=== PATIENT | male | born 1980 | race Caucasian/White ===

== ENCOUNTER 2022-12-14 16:06 | Inpatient (IN) | payer MEDICAID, OTHER, SELFPAY ==
[2022-12-14 16:16] VITALS: BP 111/74; PULSE 72; RESP 16; TEMP 36.7; O2SAT 97; BMI 24.8
--- NOTE | 2022-12-14 16:18 | ED_ITS ---
HPI - General Adult General Chief complaint: Psychiatric Symptoms Stated complaint: crisis eval ,homicidal,suicidal Time Seen by Provider: 12/14/22 16:26 Source: patient Mode of arrival: ambulatory Limitations: no limitations History of Present Illness HPI narrative: Patient comes in the emergency room complaining of feeling suicidal, homicidal with no specific plan without any specific person that he wants to hurt. Patient states that he has tried hurting himself by lacerating superficially his left arm. Patient states that the beginning of the month, patient lost custody of his children and that is his trigger. Related Data Home Medications Medication Instructions Recorded Confirmed ibuprofen 200 mg tablet 200 mg PO Q6H PRN Migraine Headache 12/15/22 12/15/22 Previous Rx's Medication Instructions Recorded aripiprazole 10 mg tablet 10 mg PO DAILY 30 days #30 tabs 12/18/22 bupropion HCl 150 mg 24 hr tablet, 150 mg PO DAILY 30 days #30 tabs 12/18/22 extended release melatonin 10 mg tablet 10 mg PO BEDTIME PRN Sleep 30 days 12/18/22 #30 tabs Allergies Allergy/AdvReac Type Severity Reaction Status Date / Time acetaminophen [From Tylenol] Allergy Hives Verified 12/14/22 16:20 Review of Systems Review of Systems: Constitutional : No Weight loss, No Fever, No Chills, No Night Sweats, No Fatigue, No Malaise ENT/Mouth : No Hearing loss, No Ear Pain, No Nasal Congestion, No Sinus Pain, No Hoarseness, No sore throat, No Rhinorrhea, No Swallowing Difficulty Eyes: No Eye Pain, No Swelling, No Redness, No Foreign Body, No Discharge, No Vision Changes Cardiovascular : No Chest Pain, No SOB, No Dyspnea on Exertion, No Orthopnea, No Edema, No Palpitations Respiratory : No Cough, No Sputum, No Wheezing, No Smoke Exposure, No Dyspnea Gastrointestinal : No Nausea, No Vomiting, No Diarrhea, No Constipation, No abdominal Pain, No Hematochezia, No Melena Genitourinary : no irregular bleeding, No Dysuria, No Urinary Frequency, No Hematuria, No Urinary Incontinence, No Urgency, No Flank Pain, No Urinary Flow Changes, No Hesitancy Musculoskeletal : No joint pain, No Myalgias, No Joint Swelling Skin : No Skin Lesions, No rash Neuro : No Weakness, No Numbness, No Paresthesias, No Loss of Consciousness, No Dizziness, No Headache Psych : Complaining of anxiety, depression, vague suicidal ideation, lost custody of his children 11/18/2022 Heme/Lymph: No Bruising, No Bleeding,No Lymphadenopathy Endocrine : No Polyuria, No Polydipsia, No Temperature Intolerance [facility] Past Medical History Medical History (Updated 12/16/22 @ 16:19 by Jd Simpson MD) Alcohol use disorder Anxiety and depression Cocaine use disorder PTSD (post-traumatic stress disorder) Social History Social History Household Members: Other Housing: Homeless Do you presently have visiting nurse or other home services: No Alcohol intake: current Alcohol intake frequency: 3 or more drinks per day Alcohol type: beer and hard liquor Patient Tobacco Use Status: Current everyday Tobacco user Tobacco use type: Cigarette Cigarette Packs Per Day: 0.5 Cigarettes Per Day: 10.0 Years Smoked: 29 e-Cigarette/Vaping Use: Never Used Second Hand Smoke Exposure: Yes Substance Use Type: Crack/Cocaine and Marijuana service: No Sexual orientation: Straight/Heterosexual Physical Exam ED Vital Signs: Vital Signs - 24 hr 12/14/22 16:16 12/15/22 02:10 12/15/22 08:47 Temperature 98.1 F 97.1 F 97.8 F Pulse Rate 72 74 70 Respiratory Rate 16 14 20 Blood Pressure 111/74 117/78 109/80 Pulse Oximetry 97 99 99 Oxygen Delivery Method Room Air Room Air Room Air BMI result Body Mass Index 24.8 Course Course Course Narrative: RME: 42 yold male presents to the ED for suicidal/homicidal thougts and depression. patient he is thinking of his lost children. patient seen at [facility]. -all of patient's labs pending -care team consult pending -physician observation started at 16:55 Reevaluation(s) Reevaluation #1: Physician observation continued. Patient started back on his medication as he was non compliant. Evaluated by crisis and it was determined that the patient should be reevaluated in the morning for potential psych admission. Patient resting comfortably, NAD, lungs clear, CV RRR, Abd nontender, Neuro intact Reevaluation #2: Physician observation continued. VS stable, no acute events overnight, inpatient bed search. voluntary Reevaluation #3: Physician observation ended at 1140am admitted to . Medications Administered Discontinued Medications Generic Name Dose Route Start Last Admin Trade Name Freq PRN Reason Stop Dose Admin Aripiprazole 10 mg 12/15/22 10:15 12/18/22 08:47 Aripiprazole 10 Mg Tablet PO 10 mg DAILY PETTY Administration Bupropion HCl 150 mg 12/17/22 13:07 12/17/22 13:22 Bupropion Hcl Xl 150 Mg Tab.Er.24h PO 12/17/22 13:08 150 mg ONCE ONE Administration Bupropion HCl 150 mg 12/18/22 09:00 12/18/22 08:46 Bupropion Hcl Xl 150 Mg Tab.Er.24h PO 150 mg DAILY PETTY Administration Gabapentin 300 mg 12/15/22 15:02 12/18/22 08:47 Gabapentin 300 Mg Capsule PO 300 mg TID PETTY Administration Ibuprofen 600 mg 12/15/22 10:42 12/15/22 10:50 Ibuprofen 600 Mg Tablet PO 12/15/22 10:43 600 mg ONCE ONE Administration Ibuprofen 200 mg 12/15/22 15:02 12/16/22 17:53 Ibuprofen 200 Mg Tablet PO 200 mg Q6H PRN Administration Migraine Headache Lorazepam 1 mg 12/15/22 15:02 12/16/22 12:27 Lorazepam 1 Mg Tablet PO 1 mg Q2H PRN Administration CIWA 6-10 Lorazepam 2 mg 12/15/22 15:02 12/18/22 08:47 Lorazepam 1 Mg Tablet PO 2 mg Q2H PRN Administration CIWA 11 and above Lorazepam 2 mg 12/15/22 15:02 12/15/22 16:24 Lorazepam 1 Mg Tablet PO 12/15/22 15:03 2 mg ONCE ONE Administration Lorazepam 2 mg 12/17/22 21:25 12/17/22 21:33 Lorazepam 1 Mg Tablet PO 12/17/22 21:26 2 mg ONCE ONE Administration Melatonin 9 mg 12/15/22 15:33 12/17/22 19:57 Melatonin 3 Mg Tablet PO 9 mg BEDTIME PRN Administration Sleep Thiamine HCl 100 mg 12/15/22 15:02 12/18/22 08:46 Thiamine Hcl 100 Mg Tablet PO 100 mg DAILY PETTY Administration Medical Decision Making Medical Decision Making MDM Narrative: - the care team evaluated the patient, inpatient bed search, patient is not on a Section 12 comfort patient is voluntarily checking himself in -when the position of labs, urine tested positive for fentanyl, benzodiazepines and cocaine, no acute management needed for patient's results from hematology and chemistry Differential Diagnosis Differential Diagnoses: The differential diagnosis associated with the presentation includes (Anxiety, depression, substance abuse) Admission/Observation Consideration of admission/observation: Escalation of care including admission/observation considered (Patient is an inpatient bed search, will be under observation in the ED until a bed becomes available.) Consult Healthcare Provider Management of the patient was discussed with: Behavioral Health Provider Lab Data MDM Lab Attestation statement: I reviewed the patient's lab results. 12/14/22 17:12 12/14/22 17:12 Labs: Lab Results 12/14/22 12/14/22 12/14/22 Range/Units 16:47 16:47 17:12 WBC 5.6 (4.8-10.8) X10*3/uL RBC 4.21 L (4.60-5.80) X10*6/uL Hgb 13.3 L (14.0-18.0) g/dl Hct 38.0 L (42.0-52.0) % MCV 90.3 (80.0-98.0) fL MCH 31.6 (27.0-33.0) pg MCHC 35.0 (31.0-36.0) g/dl RDW 12.8 (11.0-16.0) % Plt Count 265 (160-400) X10*3/uL MPV 9.7 (9.4-12.4) fL Immature Gran % (Auto) 0.2 (0.0-0.4) % Neut % (Auto) 40.1 L (45-73) % Lymph % (Auto) 42.3 H (20-40) % [place] % (Auto) 15.5 H (2-11) % Eos % (Auto) 1.4 (0-4) % Baso % (Auto) 0.5 (0-2) % Lymph # (Auto) 2.4 (1.2-4.9) X10*3/uL Finney # (Auto) 0.9 (0.1-1.2) X10*3/uL Eos # (Auto) 0.1 (0.0-0.4) X10*3/uL Baso # (Auto) 0.0 (0.0-0.2) X10*3/uL Abs Immat Gran (auto) 0.01 (0.00-0.03) X10*3/uL Absolute Neuts (auto) 2.2 (2.0-8.3) x10*3/uL Absolute Nucleated RBC 0.000 (0.0-0.012) X10*3/uL Nucleated RBC % (auto) 0.0 (0.0-0.2) /100WBC Sodium (135-145) mmol/L Potassium (3.3-5.1) mmol/L Chloride (96-108) mmol/L Carbon Dioxide (22-29) mmol/L Anion Gap (12-20) BUN (9-16) mg/dL Creatinine (0.5-1.4) mg/dL Estim Creat Clear Calc Estimated GFR Random Glucose (60-115) mg/dL Calcium (8.4-10.2) mg/dL Total Bilirubin (0.0-1.0) mg/dL AST (5-37) U/L ALT (0-40) U/L Alkaline Phosphatase (39-117) U/L Total Protein (6.5-8.0) g/dL Albumin (3.5-5.0) g/dL Urine Color Yellow Urine Appearance Turbid Urine pH 5.5 (5.0-9.0) Ur Specific [place] 1.025 (1.005-1.025) Urine Protein Negative (Neg-Trace) mg/dL Urine Glucose (UA) Negative (Negative) mg/dL Urine Ketones Trace (Negative) mg/dL Urine Blood Negative (Negative) Urine Nitrite Negative (Negative) Ur Leukocyte Esterase Negative (Negative) Urine RBC 0-2 (0-2) /HPF Urine WBC 0-5 (0-5) /HPF Ur Squamous Epith Cells 0-2 (0-2) /HPF Urine Bacteria None Seen (None Seen) Hyaline Casts 0-2 (0-2) /LPF Urine Opiates Screen Not Detected (Not Detect) Urine Fentanyl Screen POSITIVE H (Not Detect) Ur Barbiturates Screen Not Detected (Not Detect) Ur Phencyclidine Scrn Not Detected (Not Detect) Ur Amphetamines Screen Not Detected (Not Detect) U Benzodiazepines Scrn POSITIVE H (Not Detect) Urine Cocaine Screen POSITIVE H (Not Detect) U Marijuana (THC) Screen Not Detected (Not Detect) Ethyl Alcohol mg/dL COVID-19 ([facility]) (Negative) COVID-19 Clin Com 12/14/22 12/14/22 Range/Units 17:12 17:12 WBC (4.8-10.8) X10*3/uL RBC (4.60-5.80) X10*6/uL Hgb (14.0-18.0) g/dl Hct (42.0-52.0) % MCV (80.0-98.0) fL MCH (27.0-33.0) pg MCHC (31.0-36.0) g/dl RDW (11.0-16.0) % Plt Count (160-400) X10*3/uL MPV (9.4-12.4) fL Immature Gran % (Auto) (0.0-0.4) % Neut % (Auto) (45-73) % Lymph % (Auto) (20-40) % Finney % (Auto) (2-11) % Eos % (Auto) (0-4) % Baso % (Auto) (0-2) % Lymph # (Auto) (1.2-4.9) X10*3/uL [place] # (Auto) (0.1-1.2) X10*3/uL Eos # (Auto) (0.0-0.4) X10*3/uL Baso # (Auto) (0.0-0.2) X10*3/uL Abs Immat Gran (auto) (0.00-0.03) X10*3/uL Absolute Neuts (auto) (2.0-8.3) x10*3/uL Absolute Nucleated RBC (0.0-0.012) X10*3/uL Nucleated RBC % (auto) (0.0-0.2) /100WBC Sodium 137 (135-145) mmol/L Potassium 3.8 (3.3-5.1) mmol/L Chloride 107 (96-108) mmol/L Carbon Dioxide 22 (22-29) mmol/L Anion Gap 12 (12-20) BUN 30 H (9-16) mg/dL Creatinine 0.86 (0.5-1.4) mg/dL Estim Creat Clear Calc 113.0 Estimated GFR > 60 Random Glucose 112 (60-115) mg/dL Calcium 9.9 (8.4-10.2) mg/dL Total Bilirubin 0.4 (0.0-1.0) mg/dL AST 57 H (5-37) U/L ALT 39 (0-40) U/L Alkaline Phosphatase 91 (39-117) U/L Total Protein 6.3 L (6.5-8.0) g/dL Albumin 3.7 (3.5-5.0) g/dL Urine Color Urine Appearance Urine pH (5.0-9.0) Ur Specific [place] (1.005-1.025) Urine Protein (Neg-Trace) mg/dL Urine Glucose (UA) (Negative) mg/dL Urine Ketones (Negative) mg/dL Urine Blood (Negative) Urine Nitrite (Negative) Ur Leukocyte Esterase (Negative) Urine RBC (0-2) /HPF Urine WBC (0-5) /HPF Ur Squamous Epith Cells (0-2) /HPF Urine Bacteria (None Seen) Hyaline Casts (0-2) /LPF Urine Opiates Screen (Not Detect) Urine Fentanyl Screen (Not Detect) Ur Barbiturates Screen (Not Detect) Ur Phencyclidine Scrn (Not Detect) Ur Amphetamines Screen (Not Detect) U Benzodiazepines Scrn (Not Detect) Urine Cocaine Screen (Not Detect) U Marijuana (THC) Screen (Not Detect) Ethyl Alcohol < 10 mg/dL COVID-19 ([facility]) Negative (Negative) COVID-19 Clin Com See Note Critical Care Time Critical Care Time Critical Care Time: Yes Total Critical Care Time: 60 Attestation: I have personally provided critical care time. Time includes review of lab data, radiology results, discussion with consultants, and monitoring for potential decompensation. Intervention performed as documented. Discharge Plan Discharge Clinical Impression: Depression, Polysubstance abuse Patient Disposition: Admitted As Inpatient Interventions: Admission Worksheet (ED) Last Done: 12/15/22 14:51 Discharge Date/Time: 12/15/22 14:40
--- NOTE | 2022-12-14 16:37 | PC.NURSE ---
Patient reports SI/Hi d/t losing custody of his children. Reports tried to commit SI on Nov 18 by cutting wrist. Patient reports needing 3 ezequiel to wrist. Requesting to be admitted somewhere to get help however states [facility] to send him to [facility] and he said no because he has an upcoming court date. Reports snorting cocaine this am, and drinks 4 tall boys and 6 nips per day. Report using marijuana.
[2022-12-14 16:43] VITALS: PULSE 78
--- NOTE | 2022-12-14 16:48 | PC.NURSE ---
Provider notified of CIWA score
[2022-12-14 17:20] LABS: MANUAL DIFF FLAG NO
[2022-12-14 17:24] LABS: Amphetamine Screen Urine Not Detected (Not Detect); Barbiturates, Urine Not Detected (Not Detect); Benzodiazepines Screen Urine POSITIVE (Not Detect); Cannabinoid Screen Urine Not Detected (Not Detect); Cocaine Screen Urine POSITIVE (Not Detect); Fentanyl, urine POSITIVE (Not Detect); Opiate Screen Urine Not Detected (Not Detect); Phencyclidine Screen Urine Not Detected (Not Detect)
[2022-12-14 17:26] LABS: Basophils Percent Auto 0.5 % (0-2); Eosinophils Absolute Auto 0.1 X10*3/uL (0.0-0.4); Eosinophils Percent Auto 1.4 % (0-4); Hemoglobin 13.3 g/dl (14.0-18.0); Imm Gran Abs Auto 0.01 X10*3/uL (0.00-0.03); Imm Gran Pct Auto 0.2 % (0.0-0.4); Lymphocytes Absolute Auto 2.4 X10*3/uL (1.2-4.9); Lymphocytes Percent Auto 42.3 % (20-40); Mean Corpuscular Hemoglobin 31.6 pg (27.0-33.0); Mean Corpuscular Volume 90.3 fL (80.0-98.0); Mean Platelet Volume 9.7 fL (9.4-12.4); Monocytes Absolute Auto 0.9 X10*3/uL (0.1-1.2); Monocytes Percent Auto 15.5 % (2-11); Neutrophils Absolute Auto 2.2 x10*3/uL (2.0-8.3); Neutrophils Percent Auto 40.1 % (45-73); Platelet Count 265 X10*3/uL (160-400); Red Blood Count 4.21 X10*6/uL (4.60-5.80); Red Cell Distribution Width 12.8 % (11.0-16.0); White Blood Count 5.6 X10*3/uL (4.8-10.8)
[2022-12-14 17:36] LABS: COVID-19 Test Negative (Negative); IDNOW Serial# 08D9AD1C
[2022-12-14 17:48] LABS: Alanine Aminotransferase 39 U/L (0-40); Albumin Level 3.7 g/dL (3.5-5.0); Alkaline Phosphatase 91 U/L (39-117); Anion Gap 12 (12-20); Aspartate Amino Transferase 57 U/L (5-37); Bilirubin Total 0.4 mg/dL (0.0-1.0); Blood Urea Nitrogen 30 mg/dL (9-16); Calcium 9.9 mg/dL (8.4-10.2); Carbon Dioxide 22 mmol/L (22-29); Chloride 107 mmol/L (96-108); Estimated Glomerular Filt Rate > 60; Ethanol < 10 mg/dL; Glucose Random 112 mg/dL (60-115); Potassium 3.8 mmol/L (3.3-5.1); Sodium 137 mmol/L (135-145); Total Protein 6.3 g/dL (6.5-8.0)
[2022-12-15 02:10] VITALS: BP 117/78; PULSE 74; RESP 14; TEMP 36.2; O2SAT 99
--- NOTE | 2022-12-15 06:40 | PC.NURSE ---
Patient slept through the night, no distress observed/reported, behavior non concerning, disposition per care team is voluntary inpatient bed search, med rec completed/pending provider's approval, VSS, will continue to monitor.
--- NOTE | 2022-12-15 07:59 | ECG_ITS ---
Test Reason : POSITIVE FOR COCAINE Blood Pressure : / mmHG Vent. Rate : 070 BPM Atrial Rate : 070 BPM P-R Int : 138 ms QRS Dur : 086 ms QT Int : 356 ms P-R-T Axes : 053 045 052 degrees QTc Int : 384 ms Normal sinus rhythm Normal ECG No previous ECGs available Referred By: Suzanna Goodson Electronically Signed By:NOE ZENG
[2022-12-15 08:27] LABS: Appearance Urine Turbid; Color Urine Yellow; Glucose Urine UA Negative (Negative); Leukocyte Esterase Urine Negative (Negative); Nitrite Urine Negative (Negative); PH 5.5 (5.0-9.0); Specific Gravity - Urine 1.025 (1.005-1.025); Urine Blood Negative (Negative); Urine Ketones Trace mg/dL (Negative); Urine Protein Negative (Neg-Trace)
[2022-12-15 08:32] LABS: Bacteria Urine None Seen (None Seen); Hyaline Casts Urine 0-2 /LPF (0-2); RBC Urine 0-2 /HPF (0-2); Squamous Epithelial Cell Urine 0-2 /HPF (0-2); WBC Urine 0-5 /HPF (0-5)
[2022-12-15 08:47] VITALS: BP 109/80; PULSE 70; RESP 20; TEMP 36.6; O2SAT 99
--- NOTE | 2022-12-15 09:47 | PC.NURSE ---
Awake and ambulatory to bathroom. EKG and UA completed per request of floor. Calm and cooperative.
[2022-12-15] MEDS: ARIPiprazole 10 MG TABLET PO (10:10)
[2022-12-15] MEDS: Ibuprofen 600 MG TABLET PO (10:50)
--- NOTE | 2022-12-15 12:17 | PHA.MEDREC ---
Pharmacy Consult ? Medication Reconciliation Pharmacy has completed the medication reconciliation. Spoke to patient. Of Note: patient mentioned hes on ativan he could not recall the dose or frequency but mentioned he takes it for his withdrawals and that is why it was in his pee . Patient has zero claims for ativan and shows zero history of ativan in PDMP. Not sure how patient is obtaining it, left it out for this reason
[2022-12-15 14:51] VITALS: BP 131/83; PULSE 72; RESP 16; TEMP 36.8; O2SAT 99
[2022-12-15 14:52] VITALS: BMI 24.0
[2022-12-15] MEDS: LORazepam 1 MG TABLET 2 MG PO ×2 (16:24→21:36)
[2022-12-15] MEDS: Thiamine HCL 100 MG TABLET PO (16:24)
[2022-12-15] MEDS: Gabapentin 300 MG CAPSULE PO ×2 (16:24→21:31)
--- NOTE | 2022-12-15 18:28 | PC.ADMIT ---
Patient is a 42 year old Malawian speaking male, admitted from the [facility] ED at 1430 as a CV. Patient diagnosis: Unspecified depressive d/o; alcohol use disorder, moderate; cocaine use disorder, moderate. No medical issues noted. Patient apparently drinks a lot of ethanol most days and will be monitored for withdrawals. Patient was also voicing SI/HI in the ED with no plan or specific person. The SI feelings are ongoing and the patient had reported he wanted to be . He also reported fleeting aggressive thoughts, especially when he feels disrespected or wronged by other people. At the beginning of November 2022 patient's parental rights were revoked and the patient said the decision was a big trigger for his SI/HI feelings. Two IPLOC admissions to psychiatric units in the past month as well as being seen twice in the last week in emergency rooms at two other hospitals. He was not deemed in need of IPLOC during those two visits. Patient said that he has been so depressed he did an intentional drug overdose in the last two weeks. At this time the patient indicated that he is not having any SI/HI, AH/VH and denied any physical issues other than withdrawal symptoms He scored a 17 on his 1600 CIWA and was given medication. During the admission process, patient was calm and cooperative, but did report he has trouble sleeping if he has to share a room with anyone. All legals were signed, treatment plan and safety tool completed. Patient ate dinner and showered, he is calm at this time.
[2022-12-15] MEDS: Melatonin 3 MG TABLET 9 MG PO (21:31)
[2022-12-16 08:00] VITALS: BP 117/77; PULSE 68; RESP 18; TEMP 36; O2SAT 99
[2022-12-16] MEDS: Gabapentin 300 MG CAPSULE PO ×3 (08:09→21:36)
[2022-12-16] MEDS: Thiamine HCL 100 MG TABLET PO (08:09)
[2022-12-16] MEDS: ARIPiprazole 10 MG TABLET PO (08:09)
[2022-12-16] MEDS: LORazepam 1 MG TABLET PO ×2 (08:13→12:27)
[2022-12-16 08:25] LABS: Estimated Average Glucose 100 mg/dL; Hemoglobin A1c % 5.1 % (<6.0)
[2022-12-16 08:27] LABS: Cholesterol 187 mg/dL (<200); HDL Cholesterol 60 mg/dL (>40); LDL Cholesterol Calculated 115 mg/dL (<100); Triglycerides 62 mg/dL (<150)
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
[2022-12-16 09:43] LABS: Folate 8.8 ng/mL (> or = 4.0)
[2022-12-16 17:45] VITALS: BP 120/70; PULSE 82; TEMP 36.3
[2022-12-16] MEDS: Ibuprofen 200 MG TABLET PO (17:53)
[2022-12-16] MEDS: LORazepam 1 MG TABLET 2 MG PO (17:53)
[2022-12-16] MEDS: Melatonin 3 MG TABLET 9 MG PO (21:37)
[2022-12-17] MEDS: LORazepam 1 MG TABLET 2 MG PO ×5 (02:09→21:33)
--- NOTE | 2022-12-17 05:17 | PC.NURSE ---
Pt scored 11 on ciwa, 2mg of PRN Ativan given with positive effect.
[2022-12-17] MEDS: Thiamine HCL 100 MG TABLET PO (08:03)
[2022-12-17] MEDS: ARIPiprazole 10 MG TABLET PO (08:03)
[2022-12-17] MEDS: Gabapentin 300 MG CAPSULE PO ×3 (08:03→19:58)
[2022-12-17 08:16] VITALS: BP 128/78; PULSE 91; RESP 18; TEMP 36.3; O2SAT 98
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
[2022-12-17] MEDS: buPROPion HCl XL 150 MG TAB.ER.24H PO (13:22)
[2022-12-17] MEDS: Melatonin 3 MG TABLET 9 MG PO (19:57)
[2022-12-17 20:00] VITALS: BP 110/72; PULSE 88; RESP 18; TEMP 36.1
--- NOTE | 2022-12-17 21:28 | PC.NURSE ---
PT continues with alcohol w/d sx, last CIWA score was 15 @ 20:00. PT was given 2mg of Ativan @ 20:00 with little effect and continues to be moderately tremulous and reports little relief of other w/d sx. Dr. Simpson contacted via [employer], 2mg Ativan ordered NOW one time dose. Effect pending. VS stable.
--- NOTE | 2022-12-17 22:21 | PC.NURSE ---
This technical writer and editor attempted to check on patient post Ativan admin, pt currently in bed sleeping, respirations even and unlabored. Will continue to monitor.
[2022-12-18] MEDS: Thiamine HCL 100 MG TABLET PO (08:46)
[2022-12-18] MEDS: buPROPion HCl XL 150 MG TAB.ER.24H PO (08:46)
[2022-12-18] MEDS: Gabapentin 300 MG CAPSULE PO (08:47)
[2022-12-18] MEDS: LORazepam 1 MG TABLET 2 MG PO (08:47)
[2022-12-18] MEDS: ARIPiprazole 10 MG TABLET PO (08:47)
[2022-12-18 08:49] VITALS: BP 128/74; PULSE 92; RESP 18; TEMP 36.5; O2SAT 98
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
--- NOTE | 2022-12-18 11:39 | PC.NURSE ---
Pt signed 3-day notice up on 12/18. , CARMEN[place]A, UR aware.
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
== END 2022-12-18 12:31 | disposition home or self-care (01) | DRG 753 ==
LOC: HO.ED 12-15 11:37 → HO.PM5 12-15 14:06
PROVIDERS: Emergency Medicine; Physician Assistant; Admitting Provider Psychiatry & Neurology Psychiatry; Emergency Provider Emergency Medicine; PCP Registered Nurse; Visit Provider Psychiatry & Neurology Psychiatry
DX: F31.81 Bipolar II disorder (principal); R45.851 Suicidal ideations; R45.850 Homicidal ideations; F19.10 Other psychoactive substance abuse, uncomplicated; F43.12 Post-traumatic stress disorder, chronic; F10.20 Alcohol dependence, uncomplicated; F17.210 Nicotine dependence, cigarettes, uncomplicated; Z71.6 Tobacco abuse counseling; Z20.822 Contact with and (suspected) exposure to COVID-19; Z79.899 Other long term (current) drug therapy
CPT/HCPCS: 36415; 80053; 80061; 80307; 81001; 82746; 83036; 85025; 87635; 93005; 99285; S9485

== ENCOUNTER → 2022-12-15 13:49 | Outpatient (BNV) | payer OTHER, SELFPAY | PROVIDERS: Admitting Provider Psychiatry & Neurology Psychiatry; Emergency Provider Emergency Medicine; PCP Registered Nurse; Visit Provider Psychiatry & Neurology Psychiatry | DX: F31.4 Bipolar disorder, current episode depressed, severe, without psychotic features (principal); F43.11 Post-traumatic stress disorder, acute; F10.90 Alcohol use, unspecified, uncomplicated; F14.10 Cocaine abuse, uncomplicated; F10.939 Alcohol use, unspecified with withdrawal, unspecified | CPT/HCPCS: 90792; 99232; 99239 ==

== ENCOUNTER 2025-02-07 07:02 | Emergency (ER) | payer MEDICAID, SELFPAY ==
[2025-02-07 07:05] VITALS: BP 127/83; PULSE 77; RESP 20; TEMP 36.6; O2SAT 99; BMI 25.1
[2025-02-07 07:39] VITALS: BP 127/83; PULSE 77; RESP 20; TEMP 36.6
--- NOTE | 2025-02-07 07:43 | MHC.EDTECH ---
Urine cup at bedside, patient aware urine sample is required.
--- OUTSIDE RECORDS SUMMARY | 2025-02-07 07:45 | XMS_ITS | Clinical Summary ---
Author Organization [facility] Address [address] [place] [address] Care Team Providers Care Supervisor [employer] Name Role Phone Holli Castro MD Primary Care Provider [phone] Allergies Active Allergy Reactions Criticality Noted Date Comments Acetaminophen Hives Medium 04/13/2023 Medications * This document contains information received from the source organization and may not represent a complete record from that organization. hydrOXYzine (ATARAX) 50 mg tablet 02/16/2023 Active Active Problems Problem Noted Date Diagnosed Date Chronic bilateral low back pain without sciatica 04/15/2023 Assessment & Plan (04/15/2023 9:13 AM EST): Given unmasking of symptoms with tapering of suboxone, continue prn nsaids and start prn flexeril 5 mg 3 times a day as this has proven beneficial in the past for this patient per his report Chronic GERD 04/15/2023 Assessment & Plan (04/15/2023 9:14 AM EST): Standing order for pantoprazole given history of heavy etoh abuse and his current reflux breakthrough despite use of prn regimen. General medical exam 04/15/2023 Major depression, chronic 04/13/2023 Social History Tobacco Use Types Packs/Day Years Used Date Smoking Tobacco: Every Day Cigarettes 1 31.2 Started: 11/23/1993 Smokeless Tobacco: Never Tobacco Cessation:Ready to Q uit: Not Asked; Counseling Given: Not Answered Alcohol Use Standard Drinks/Week Comments Yes 16 (1 standard drink = 0.6 oz pu re alcohol) daily use Sex and Gender Information Value Date Recorded Sex Assigned at Not on file Legal Sex Male 3:10 PM EST Gender Identity Not on file Sexual Orientation Not on file Last Filed Vital Signs Vital Sign Reading Time Taken Comments Blood Pressure 106/68 04/18/2023 1:53 PM EST Pulse 68 04/18/2023 1:53 PM EST Temperature 36.6 C (97.8 F) 04/18/2023 1:53 PM EST Respiratory Rate 19 04/18/2023 11:16 AM EST Oxygen Saturation 98% 04/18/2023 1:53 PM EST Inhaled Oxygen Concentration - - Weight 78.9 kg (174 lb) 04/18/2023 6:04 AM EST Height 175.3 cm (5' 9 ) 04/18/2023 6:04 AM EST Body Mass Index 25.7 04/18/2023 6:04 AM EST Plan of Treatment Health Maintenance Due Date Last Done Comments HIV Screening 1981 Varicella Vaccines (1 of 2 - 13+ 2-dose series) 1994 Hepatitis B Vaccines (3 of 3 - Hep B Twinrix 3-dose series) 10/14/2007 05/16/2007, 06/13/1999 Pneumococcal Vaccine: Pediat sudha (0-5 Years) and At-Risk Patients (6-50 Years) (2 of 2 - PCV) 04/17/2020 04/17/2019 Alcohol/Substance Use Screening 04/16/2024 COVID-19 Vaccine (4 - 2024- season) 2024 05/19/2021, 06/01/2020, 05/05/2020 Influenza Vaccine (#1) 2024 04/23/2021, 2018 DTaP,Tdap,and Td Vaccines (4 - Td or Tdap) 07/24/2031 07/23/2021, 04/23/2021, 11/24/2010 RSV Vaccine (60+ years old a nd patients) (1 - 1-dose 75+ series) 2056 Insurance [place] [employer]ICA[employer] Advance Directives * Full Code (Latest Code Status on File) Date Activated Date Inactivated Comments 04/13/2023 8:33 PM 04/17/2023 1:47 PM Care Teams Supervisor [employer] Relationship Specialty Start Date End Date Holli Castro MD [address] [place] [phone] PCP - General 04/04/23
[2025-02-07 08:01] LABS: MANUAL DIFF FLAG NO
[2025-02-07 08:03] LABS: Hematocrit 39.7 % (42.0-52.0); Hemoglobin 13.9 g/dl (14.0-18.0); Imm Gran Abs Auto 0.02 X10*3/uL (0.00-0.03); Imm Gran Pct Auto 0.3 % (0.0-0.4); Lymphocytes Absolute Auto 2.4 X10*3/uL (1.2-4.9); Mean Corpuscular HGB Conc 35.0 g/dl (31.0-36.0); Mean Corpuscular Hemoglobin 30.2 pg (27.0-33.0); Mean Corpuscular Volume 86.3 fL (80.0-98.0); NRBC Abs Auto 0.000 X10*3/uL (0.0-0.012); NRBC Pct Auto 0.0 /100WBC (0.0-0.2); Platelet Count 242 X10*3/uL (160-400); Red Blood Count 4.60 X10*6/uL (4.60-5.80); White Blood Count 7.2 X10*3/uL (4.8-10.8)
--- NOTE | 2025-02-07 08:06 | ED.GENADULT ---
HPI - General Adult General Chief complaint: Psychiatric Symptoms Stated complaint: SI Time Seen by Provider: 02/07/25 08:02 Source: patient Mode of arrival: ambulatory Limitations: no limitations History of Present Illness ED Provider: Basia Mike PA-C HPI narrative: Patient is a 44 year old assigned male at with a history of cocaine use disorder, alcohol use disorder, bipolar disorder, and depression presenting to the emergency department today with suicidal ideation. Patient states that he has felt more depressed and is having thoughts of killing himself. Patient denies any other complaints at this time. Related Data Home Medications ?Medication ?Instructions ?Recorded ?Confirmed No Known Home Meds 02/07/25 02/07/25 Allergies Allergy/AdvReac Type Severity Reaction Status Date / Time acetaminophen (From Tylenol) Allergy Hives Verified 02/07/25 07:08 Review of Systems Constitutional: Constitutional: Reports as per HPI Eyes: Eyes: Reports as per HPI ENT: Reports as per HPI Cardiovascular: Cardiovascular: Reports as per HPI Respiratory: Respiratory: Reports as per HPI Gastrointestinal: Gastrointestinal: Reports as per HPI Genitourinary: Genitourinary: Reports as per HPI Musculoskeletal: Musculoskeletal: Reports as per HPI Integumentary/Breasts: Skin/Breast: Reports as per HPI Neurologic: Reports as per HPI Psychiatric: Psychiatric: Reports as per HPI Endocrine: Endocrine: Reports as per HPI Hematologic/Lymphatic: Hematologic/Lymphatic: Reports as per HPI Allergic/Immunologic: Allergic/Immunologic: Reports as per HPI PMFSH Past Medical History Attestation statement: The following information was validated with the patient. Source: old records reviewed and nursing notes reviewed Medical History Cocaine use disorder Alcohol use disorder PTSD (post-traumatic stress disorder) Polysubstance abuse Anxiety and depression Social History Social History Household Members: Other Housing: Homeless Do you presently have visiting nurse or other home services: No Alcohol intake: current Alcohol intake frequency: 3 or more drinks per day Alcohol type: beer and hard liquor Patient Tobacco Use Status: Current everyday Tobacco user Tobacco use type: Cigarette Cigarette Packs Per Day: 0.5 Cigarettes Per Day: 10.0 Years Smoked: 29 Smoked in Last 30 Days: Yes e-Cigarette/Vaping Use: Never Used Second Hand Smoke Exposure: Yes Substance Use Type: Crack/Cocaine and Marijuana Advance Directives: No Advance Directives Information Provided: No Do you have a plan to hurt others: No Plan service: No Sexual orientation: Straight/Heterosexual Physical Exam ED Vital Signs: Vital Signs - 24 hr 02/07/25 07:05 02/07/25 07:39 02/07/25 10:56 Temperature 97.8 F 97.8 F 97.3 F Pulse Rate 77 77 96 Respiratory Rate 20 20 16 Blood Pressure 127/83 127/83 117/78 Pulse Oximetry 99 99 Oxygen Delivery Method Room Air Room Air 02/07/25 17:37 02/08/25 06:15 Temperature Pulse Rate 69 Respiratory Rate 18 16 Blood Pressure 108/57 L Pulse Oximetry 98 Oxygen Delivery Method Room Air BMI result Body Mass Index 25.1 Const General: cooperative, no acute distress, alert and awake Nutritional Appearance: well nourished Orientation/consciousness: patient oriented x3 HENMT Head: Yes normal to inspection and Yes atraumatic Ears: hearing grossly normal bilaterally and external ears normal General nose exam: Normal external nose present, no nasal discharge noted and no epistaxis Face and sinus: Yes normal facial exam, No abrasion and No laceration Mouth: Normal oral and palatal mucosa present, no drooling and no muffled voice Eyes General: appearance normal, both eyes and all related structures Periorbital: periorbital findings normal Eyelids: Yes eyelids normal Conjunctivae: conjunctivae normal Pupils: Equal, round and reactive pupils present EOM: EOMs intact bilaterally Neck Neck: Yes normal visual inspection and Yes full ROM Resp Effort & Inspection: normal respiratory effort and able to speak in complete sentences Neuro General: patient oriented x3, moves all extremities and CN's II-XI intact bilaterally Cranial nerves: Yes Equal, round and reactive pupils present Cognition (Neuro): normal cognition Extrem General: Yes normal to inspection, Yes full ROM and Yes capillary refill normal Psych Appearance: grossly normal Mental Status: mental status grossly normal Affect: Sad affect present Attitude: Guarded attititude/behavior present Thought content: Suicidality present Course Reevaluation(s) Reevaluation #1: Time: 05:32 Date: 02/08/25 Provider: Vince Whitney MD Patient in physician observation for psychiatric evaluation.? No acute events reported overnight. No current complaints. VS stable.? Patient is in bed search status. Will continue to monitor. Reevaluation #2: Time: 06:38 Date: 02/08/25 Provider: Vince Whitney MD Physician observation ended at 06:38 hours. I obtained the following information from ED nurse. The patient initially signed himself into the emergency department under a false name and this was discovered after we looked at his identification. The patient is homeless. The patient's is also homeless and she is currently in the emergency department Behavioral pod. Patient initially stated that he is suicidal but since he can not go back to the ED Behavioral Health pod to be with a his he wants to leave. I did talk to the patient. He did tell me that he was upset that he could not stay in the emergency department Behavioral pod. He states that this time he is not suicidal and he feels safe leaving. He told me that he has no intention of overdosing if he leaves. I did review the care team note as well. Given this new information, I will discharge the patient. He did request that we inform his that he is leaving. Therefore I did talk to his and informed her that he is leaving. She did agree to let the patient have the cell phone that is in her belongings bag as well as the cigarettes that are in her belongings bag. Medications Administered Generic Name Dose Route Start Last Admin Trade Name Aleshia PRN Reason Stop Dose Admin Buprenorphine/Naloxone 3 film 02/07/25 09:00 02/07/25 09:20 Buprenorphine/Naloxone 8/2 Mg Film SUBLINGUAL Not Given DAILY PETTY Medical Decision Making Medical Decision Making [facility] Narrative: Patient is a 44 year old assigned male at with a history of cocaine use disorder, alcohol use disorder, bipolar disorder, and depression presenting to the emergency department today with suicidal ideation. Patient's physical exam was as noted in the physical exam portion of this note. Patient's blood work was unremarkable. Patient's urine showed no acute process. Patient was evaluated by the CARE team who recommended inpatient level of psychiatric care. I explained my physical exam findings as well as all test results to the patient. I answered all questions asked by the patient. Patient placed in observation at 0818 on 02/07/2025 pending either admission to the [facility] psychiatric floor or transferred to an appropriate psychiatric facility. Differential Diagnosis Differential Diagnoses: The differential diagnosis associated with the presentation includes SI Depression Admission/Observation Consideration of admission/observation: Escalation of care including admission/observation considered Patient placed in observation at 0818 on 02/07/2025 pending either admission to the [facility] psychiatric floor or transferred to an appropriate psychiatric facility. Consult Healthcare Provider Management of the patient was discussed with: Behavioral Health Provider (spoke with the CARE team as noted in the MDM Rationale portion of this note. ) Lab Data MDM Lab Attestation statement: I reviewed the patient's lab results. My interpretation of these results are in the MDM Rationale portion of this note. 02/07/25 07:42 02/07/25 07:42 Labs: Lab Results 02/07/25 02/07/25 Range/Units 07:42 08:29 WBC 7.2 (4.8-10.8) X10*3/uL RBC 4.60 (4.60-5.80) X10*6/uL Hgb 13.9 L (14.0-18.0) g/dl Hct 39.7 L (42.0-52.0) % MCV 86.3 (80.0-98.0) fL MCH 30.2 (27.0-33.0) pg MCHC 35.0 (31.0-36.0) g/dl RDW 13.2 (11.0-16.0) % Plt Count 242 (160-400) X10*3/uL MPV 9.9 (9.4-12.4) fL Immature Gran % (Auto) 0.3 (0.0-0.4) % Neut % (Auto) 52.0 (45-73) % Lymph % (Auto) 33.8 (20-40) % Worth % (Auto) 12.8 H (2-11) % Eos % (Auto) 0.7 (0-4) % Baso % (Auto) 0.4 (0-2) % Lymph # (Auto) 2.4 (1.2-4.9) X10*3/uL Worth # (Auto) 0.9 (0.1-1.2) X10*3/uL Eos # (Auto) 0.1 (0.0-0.4) X10*3/uL Baso # (Auto) 0.0 (0.0-0.2) X10*3/uL Abs Immat Gran (auto) 0.02 (0.00-0.03) X10*3/uL Absolute Neuts (auto) 3.7 (2.0-8.3) x10*3/uL Absolute Nucleated RBC 0.000 (0.0-0.012) X10*3/uL Nucleated RBC % (auto) 0.0 (0.0-0.2) /100WBC Sodium 141 (135-145) mmol/L Potassium 4.0 (3.3-5.1) mmol/L Chloride 108 (96-108) mmol/L Carbon Dioxide 26 (22-29) mmol/L Anion Gap 11 L (12-20) BUN 13 (9-16) mg/dL Creatinine 0.94 (0.5-1.4) mg/dL Estim Creat Clear Calc 101.3 Estimated GFR > 60 Random Glucose 88 (60-115) mg/dL Calcium 9.0 D (8.4-10.2) mg/dL Total Bilirubin 0.7 (0.0-1.0) mg/dL AST 27 (5-37) U/L ALT 16 (0-40) U/L Alkaline Phosphatase 92 (39-117) U/L Total Protein 6.7 (6.5-8.0) g/dL Albumin 4.2 (3.5-5.0) g/dL Urine Color Yellow Urine Appearance Clear Urine pH 6.5 (5.0-9.0) Ur Specific [place] 1.015 (1.005-1.025) Urine Protein Negative (Neg-Trace) mg/dL Urine Glucose (UA) Negative (Negative) mg/dL Urine Ketones Negative (Negative) mg/dL Urine Blood Negative (Negative) Urine Nitrite Negative (Negative) Ur Leukocyte Esterase Trace H (Negative) Urine RBC 0-2 (0-2) /HPF Urine WBC 0-5 (0-5) /HPF Ur Squamous Epith Cells 0-2 (0-2) /HPF Urine Bacteria None Seen (None Seen) Hyaline Casts 0-2 (0-2) /LPF Urine Opiates Screen Not Detected (Not Detect) Ur Buprenorphine Scrn Not Detected (Not Detect) ng/mL Ur Oxycodone Screen Not Detected (Not Detect) ng/mL Urine Methadone Screen Not Detected (Not Detect) ng/mL Urine Fentanyl Screen Not Detected (Not Detect) Ur Barbiturates Screen Not Detected (Not Detect) Ur Phencyclidine Scrn Not Detected (Not Detect) Ur Amphetamines Screen Not Detected (Not Detect) U Benzodiazepines Scrn Not Detected (Not Detect) Urine Cocaine Screen POSITIVE H (Not Detect) U Marijuana (THC) Screen Not Detected (Not Detect) Ethyl Alcohol < 10 mg/dL Critical Care Time Critical Care Time Critical Care Time: Yes Total Critical Care Time: 34 Attestation: I spent 34 minutes of Critical Care Time with this patient. This does not include time spent on separately reported billable procedures. Discharge Plan Discharge Clinical Impression: Suicidal ideation Depression Qualifiers: Depression Type: unspecified Qualified Code(s): F32.A - Depression, unspecified Patient Disposition: Home, Self-Care Additional Instructions: Continue taking medications as prescribed by your providers. You were seen in our Emergency Department today for treatment of a behavioral health issue. It is important after your visit that you follow up with either your behavioral health provider or a primary care doctor within 7 days.? If you have trouble finding a therapist you can reach out to [address] [phone] The National Suicide and Crisis Lifeline can be reached 7 days a week 24 hours a day.? Call 988 to speak with someone.? Return for any worsening symptoms or concerns such as thoughts of self harm or harm to others. Please call 911 if you feel your mental health is worsening.? Prescriptions: No Action No Known Home Meds Interventions: [place]le-Suicide Risk Severity Scale Last Done: 02/07/25 07:35 Print Language: Italian
[2025-02-07 08:20] LABS: Alanine Aminotransferase 16 U/L (0-40); Albumin Level 4.2 g/dL (3.5-5.0); Alkaline Phosphatase 92 U/L (39-117); Anion Gap 11 (12-20); Aspartate Amino Transferase 27 U/L (5-37); Blood Urea Nitrogen 13 mg/dL (9-16); Calcium 9.0 mg/dL (8.4-10.2); Carbon Dioxide 26 mmol/L (22-29); Chloride 108 mmol/L (96-108); Creatinine Clr Calc Pharmacy 101.3; Estimated Glomerular Filt Rate > 60; Potassium 4.0 mmol/L (3.3-5.1); Sodium 141 mmol/L (135-145); Total Protein 6.7 g/dL (6.5-8.0)
--- NOTE | 2025-02-07 08:23 | PHA.MEDREC ---
Pharmacy Consult ? Medication Reconciliation Pharmacy has reviewed the medication reconciliation completed by nursing.
[2025-02-07 08:39] LABS: Appearance Urine Clear; Glucose Urine UA Negative (Negative); PH 6.5 (5.0-9.0); Specific Gravity - Urine 1.015 (1.005-1.025); UMIC TRIGGER UACC YES
[2025-02-07 08:51] LABS: Cannabinoid Screen Urine Not Detected (Not Detect)
[2025-02-07 10:56] VITALS: BP 117/78; PULSE 96; RESP 16; TEMP 36.3; O2SAT 99
[2025-02-07 17:37] VITALS: BP 108/57; PULSE 69; RESP 18; O2SAT 98
[2025-02-08 06:15] VITALS: RESP 16
--- NOTE | 2025-02-08 06:45 | PC.NURSE ---
Pt brought out to main from POD with security, calm and cooperative requesting to speak with the provider immediately upon arrival. quality control technician spoke with the patient, MD Whitney to bedside. Per pt to be discharged home at this time, despite care team recommendation for IPLOC... Pt now reports that he is no longer suicidal. Pt requesting to have his belongings including some specific items that are located in his 's belongings. POD RN made aware and will be working with per MD Whitney request to appease the patient as he states if he doesn't get his phone and cigarettes back yall will have to put me back there .
[2025-02-08 07:19] VITALS: BP 132/67; PULSE 67; RESP 14; TEMP 36.8; O2SAT 97
--- NOTE | 2025-02-08 07:20 | PC.NURSE ---
Patient phone and cigarettes were retrieved from wifes belongings Belongings were given back to patient Patient refused to sign discharge paperwork Patient discharged from ED
== END 2025-02-08 07:20 | disposition home or self-care (01) ==
PROVIDERS: Emergency Provider Emergency Medicine Emergency Medical Services
DX: F32.A Depression, unspecified (principal); R45.851 Suicidal ideations; Z59.00 Homelessness unspecified
CPT/HCPCS: 36415; 80053; 80307; 81001; 85025; 99284; 99285; S9485